=== PATIENT | female | born 1945 | race Caucasian/White ===

== ENCOUNTER → 2017-06-21 | Outpatient (CLI) | payer OTHER ==
[~2017-06-21] MED LIST: AMOXICILLIN PO; ASPECUNK PO; DYZUNK; EVS60 PO; EZET10TA63 PO; METO25TA56 PO; OXYSR20 PO; POTASSIUM; PRVSRUNK PO; SYN25 PO
== END | disposition home or self-care (01) ==
LOC: C.PAPS 14:50
PROVIDERS: ATTEND Obstetrics & Gynecology
DX: Z12.4 Encounter for screening for malignant neoplasm of cervix (principal); N95.0 Postmenopausal bleeding

== ENCOUNTER 2017-07-29 05:34 | Observation (INO) | payer OTHER, MEDICARE ==
[2017-07-15 14:45] VITALS: Ht 167.6 cm; Wt 124.3 kg
--- NOTE | 2017-07-15 15:04 | PAT Medication Instructions ---
Service Date Jul 15, 2017. Current Home Medication List Aspirin (Aspirin Ec), 81 MG PO QAM Cholecalciferol (Vitamin D), 1 TAB PO QAM Gemfibrozil (Lopid), 1 TAB PO BID Levothyroxine Sodium (Synthroid), 1 TAB PO QAM Lisinopril (Prinivil), 10 MG PO QPM Metoprolol Succinate (Metoprolol Succinate ER), 1 TAB PO QPM Medication Instructions For Your Scheduled Surgery - Check with surgeon and prescribing physician for instructions: Aspirin (Aspirin Ec), 81 MG PO QAM - Hold the following medications 24 hours prior to surgery: Lisinopril (Prinivil), 10 MG PO QPM - Hold the following medications the morning of surgery: Cholecalciferol (Vitamin D), 1 TAB PO QAM Gemfibrozil (Lopid), 1 TAB PO BID - Take the following medications the morning of surgery with a sip of water: Levothyroxine Sodium (Synthroid), 1 TAB PO QAM Metoprolol Succinate (Metoprolol Succinate ER), 1 TAB PO QPM - Take the following medications as scheduled the night before surgery: Gemfibrozil (Lopid), 1 TAB PO BID If you have any questions please call us at [phone] or [phone] or [phone]
--- NOTE | 2017-07-15 15:54 | DIAGNOSTIC IMAGING REPORT ---
TWO VIEW CHEST CLINICAL HISTORY: Preoperative examination. FINDINGS: PA and lateral chest radiographs are compared to study dated 01/30/2011. The heart is mildly enlarged and there is atherosclerotic calcification of the thoracic aorta. The pulmonary vasculature is noncongested. Chronic interstitial thickening is similar to previous. The lungs and pleural spaces are clear. There is no pneumothorax. The skeletal structures are osteopenic. The bony thorax appears intact. Degenerative change is seen throughout the thoracic spine. IMPRESSION: Mild cardiac enlargement with no active disease in the chest. Electronically signed by: Braden Antony M.D. 07/15/2017 3:53 PM Dictated Date/Time: 07/15/2017 3:52 PM
[~2017-07-29] VITALS: Ht 167.6 cm; Wt 124.3 kg
[2017-07-29] VITALS (10 sets, daily range): BP systolic 129–172; BP diastolic 67–86; PULSE 62–88; TEMP 36.4–36.7; O2SAT 92–97
[~2017-07-29 05:34] MED LIST changes: -AMOXICILLIN PO; -ASPECUNK PO; +ASPI81TA28 PO; +CHOL1TAB42 PO; -DYZUNK; -EVS60 PO; -EZET10TA63 PO; +GEMF600T3 PO; +LEVO75TA PO; +LISI10TA PO; -METO25TA56 PO; -OXYSR20 PO; -POTASSIUM; -PRVSRUNK PO; -SYN25 PO; +TPRSR50 PO
[2017-07-29] MEDS ORDERED: CEFAZOLIN 3000MG IV PUSH 15 ML IV SCH (06:00)
[2017-07-29] MEDS ORDERED: LACTATED RINGER'S 1000ML 1,000 ML IV SCH ×3 (06:00→12:45)
[2017-07-29] MEDS ORDERED: BUPIVACAINE 0.5 % 5 MG/1 ML MPF 30ML VIAL ONE (07:02)
--- NOTE | 2017-07-29 07:03 | History & Physical Bridge Note ---
H&P Re-Evaluation Bridge Note: I have examined the patient, reviewed the History & Physical and in the interval since the performance of the History & Physical I have noted the following changes of clinical significance: No changes noted
[2017-07-29] MEDS ORDERED: FENTANYL CITRATE INJ 50 MCG/1 ML 2 ML VIAL ONE (07:04)
[2017-07-29] MEDS ORDERED: MIDAZOLAM HCL 1 MG/ML 2ML VIAL ONE (07:04)
[2017-07-29] MEDS ORDERED: CISATRACURIUM BESYLATE IV SOLN 2 MG/ML 10 ML VIAL ONE (08:27)
[2017-07-29] MEDS ORDERED: DEXAMETHASONE SOD INJ 4 MG/ML VIAL ONE (08:27)
[2017-07-29] MEDS ORDERED: EpHEDrine SULFATE 50MG/5ML SYR ONE (08:27)
[2017-07-29] MEDS ORDERED: LIDOCAINE HCL 2% 2 ML VIAL (20MG/ML) ONE (08:27)
[2017-07-29] MEDS ORDERED: SUCCINYLCHOLINE 100MG/5ML SYR IV ONE (08:27)
[2017-07-29] MEDS ORDERED: PROPOFOL IV EMULSION 10 MG/ML 20 ML VIAL IV ONE (08:27)
[2017-07-29] MEDS ORDERED: LARYING-O-JET KIT (LTA) ONE ×2 (08:27)
[2017-07-29] MEDS ORDERED: NEOSTIGMINE METHYLSULFATE 5 MG/5 ML SYR ONE (08:27)
[2017-07-29] MEDS ORDERED: ONDANSETRON INJ 2 MG/ML 2 ML VIAL ONE (08:27)
[2017-07-29] MEDS ORDERED: KETOROLAC TROMETHAMINE 30 MG/ML VIAL ONE (08:27)
[2017-07-29] MEDS ORDERED: METHYLENE BLUE 0.5% 10 ML VIAL ONE (08:27)
[2017-07-29] MEDS ORDERED: GLYCOPYRROLATE INJ 0.2 MG/ML VIAL ONE (08:27)
[2017-07-29] MEDS ORDERED: LABETALOL HCL IV 5 MG/ML 20ML IV ONE (08:29)
[2017-07-29] MEDS ORDERED: PHENYLEPHRINE 100MCG/ML 5ML SYR ONE (08:58)
[2017-07-29] MEDS ORDERED: TISSEEL FIBRIN SEALANT 10ML TOP ONE (09:33)
[2017-07-29] MEDS ORDERED: TISSEEL FIBRIN SEALANT 4ML TOP ONE (09:46)
--- NOTE | 2017-07-29 10:07 | [facility] Post Operative Brief Note ---
Immediate Operative Summary Operative Date Jul 29, 2017. Pre-Operative Diagnosis Complex endometrial hyperplasia, endometrial polyp, and postmenopausal bleeding Post-Operative Diagnosis Complex endometrial hyperplasia, endometrial polyp, and postmenopausal bleeding Procedure(s) Performed Robotic assisted total laparoscopic hysterectomy with bilateral salpingo-oopherectomy and cystoscopy Surgeon Dr. Roberto Kelley MD Breakfast Attendant Surgeon(s) None Estimated Blood Loss 80ml Findings adhesions Specimens A. Uterus, cervix, bilateral fallopian tubes and ovaries Drains Ascencio Anesthesia General Complication(s) None Disposition Recovery Room / PACU
--- NOTE | 2017-07-29 10:08 | Discharge Instructions ---
Discharge Instructions Date of Service Jul 29, 2017. Admission Reason for Admission: Complex Endometrial Hyperplasia, Post-Menopausal B Discharge Discharge Diagnosis / Problem: PMB Discharge Goals Goal(s): Routine recovery after surgery Activity Recommendations Activity Limitations: per Instructions/Follow-up section . Instructions / Follow-Up Instructions / Follow-Up POST OPERATIVE: BOWEL FUNCTION/MEDICATIONS: 1. Constipation pain and discomfort are the most common complaints 5-7 days after surgery. Points 2-6 address the things that can help. 2. Chewing gum can help stimulate the gut and help improve digestion and motility. 3. Milk of Magnesia 1-2 times per day until return of bowel function. 4. Colace is a stool softener that helps. Taking this 2-3 times per day until bowel function returns to normal is highly recommended. 5. Dulcolax is a laxative that may be used if several days have passed without a bowel movement. Alternatively Miralax may be used daily instead. 6. Drink plenty of fluids as this will also reduce constipation. 7. Narcotic pain medications will be prescribed by your physician. They are safe to use and we encourage you to use them. If you are not allergic, ibuprofen will also be prescribed. Many patients will be able to transition off of the narcotic medications to ibuprofen by postoperative day 3. ACTIVITY RECOMMENDATIONS: 1. Get plenty of rest and listen to your body. If you are tired, take a nap. 2. You may shower, but do not take a tub bath until you see your doctor at the 2 week post operative visit. 3. Absolutely NO intercourse and nothing in the vagina until you are examined by your doctor at the 6 week visit. At that visit it will be determined when such activities can be resumed. This can range from 6-12 weeks after your surgery depending on healing time. 4. The main physical activity in the first week should be walking. By the second week you can slowly increase activity. There are no limits on walking up and down stairs. 5. Do not lift more than 5-10 lbs for 4 weeks. Remember the "one-handed rule", i.e. if you can lift something with only one hand it's likely okay. 6. Minimize gravity prospecting observer helper like vacuuming and exercising for 4 weeks. "Overdoing it" can lead to incisions not healing, pain and vaginal bleeding , so again, listen to your body. 7. Driving can be resumed when you feel able. Do not drive within 24 hours of taking a narcotic medication. EXPECTATIONS: 1. Vaginal spotting, bleeding and discharge are common after surgery. There may even be an odor to the discharge which is often related to sutures used in the vagina. If you experience heavy vaginal bleeding, call the office number day or night [phone]. 2. Bladder discomfort is common after surgery from the catheter. This usually resolves in 1-2 weeks. 3. By the end of the 3rd or 4th week you should be feeling much better. It may take up to 6 weeks for your energy levels to return to normal. 4. Narcotic medications have side effects such as: dizziness, headache, nausea and/or vomiting. If you suspect your pain medication is causing problems, call our office and we may be able to prescribe an alternate medication. 5. The skin incisions are often covered with a liquid bandage. This will gradually peel off over time. CALL THE OFFICE IF YOU HAVE ANY OF THE FOLLOWIN. Temperature of 101 degrees or higher. 2. Severe abdominal or pelvic pain not relieved by pain medication. 3. Persistent nausea or vomiting. 4. Increased pain with urination or difficulty urinating. 5. Bright red bleeding that soaks more than 1 pad per hour. CONTACT PHONE NUMBERS: Main Office: [phone] Surgical Nurse: [phone] extension [phone] Avoid all tobacco products. If you need help to stop smoking, call [place] FREE QUITLINE at . This is a free call. Current Hospital Diet Patient's current hospital diet: Discharge Diet Recommended Diet: Regular Diet Procedures Procedures Performed: Robotic assisted total laparoscopic hysterectomy with bilateral salpingo-oopherectomy and cystoscopy Pending Studies Studies pending at discharge: no Medical Emergencies . Who to Call and When: Medical Emergencies: If at any time you feel your situation is an emergency, please call 911 immediately. . Non-Emergent Contact Non-Emergency issues call your: Counter Tacker . . "Provider Documentation" section prepared by Pacheco Kelley. . VTE Core Measure Inpt VTE Proph given/why not?: Carly Pérez, SCD's
[2017-07-29] MEDS ORDERED: MTR600X PO (10:09)
[2017-07-29] MEDS ORDERED: OXYC-57 PO (10:09)
[2017-07-29] MEDS ORDERED: MAGNESIUM HYDROXIDE SUSP 30 ML UDC PO PRN (10:15)
[2017-07-29] MEDS ORDERED: SIMETHICONE 80 MG CHEW PO PRN (10:15)
[2017-07-29] MEDS ORDERED: PROMETHAZINE HCL INJ 12.5 MG in SODIUM CHLORIDE 0.9% 50ML 50 ML IV PRN ×2 (10:15→10:30)
[2017-07-29] MEDS ORDERED: MEPERIDINE HCL 50 MG/ML CARP IV PRN ×2 (10:15)
[2017-07-29] MEDS ORDERED: ACETAMINOPHEN 325 MG TAB PO PRN (10:15)
[2017-07-29] MEDS ORDERED: BISACODYL 10 MG SUPP PR PRN (10:15)
[2017-07-29] MEDS ORDERED: OXYCODONE/ACETAMINOPHEN 5-325 TAB PO PRN (10:15)
[2017-07-29] MEDS ORDERED: ZOLPIDEM TARTRATE 5 MG TAB PO PRN (10:15)
[2017-07-29] MEDS ORDERED: IBUPROFEN 600 MG TAB PO PRN (10:15)
[2017-07-29] MEDS ORDERED: ONDANSETRON INJ 2 MG/ML 2 ML VIAL IV PRN ×2 (10:15→10:30)
[2017-07-29] MEDS ORDERED: PROMETHAZINE HCL INJ 25 MG in SODIUM CHLORIDE 0.9% 50ML 50 ML IV PRN (10:15)
[2017-07-29] MEDS ORDERED: LABETALOL HCL IV 5 MG/ML 20ML IV PRN (10:30)
[2017-07-29] MEDS ORDERED: EpHEDrine SULFATE INJ 50 MG/ML AMP IV PRN (10:30)
[2017-07-29] MEDS ORDERED: FLUMAZENIL 0.1 MG/1 ML 10 ML VIAL IV PRN (10:30)
[2017-07-29] MEDS ORDERED: ATROPINE SULFATE 0.1 MG/ML 5ML SYR IV PRN (10:30)
[2017-07-29] MEDS ORDERED: NALOXONE HCL 0.4 MG/1 ML VIAL/CARP IV PRN (10:30)
[2017-07-29] MEDS ORDERED: HYDROmorphone INJ 0.5 MG/0.5 ML SYR IV PRN (10:30)
[2017-07-29] MEDS ORDERED: IV FLUIDS COMPLETED PRN (11:00)
--- NOTE | 2017-07-29 11:15 | Anesthesiology Progress Note ---
Anesthesia Post Op Note Date & Time Jul 29, 2017 at 11:15 Vital Signs Pain Intensity: 3 Vital Signs Past 12 Hours Date Time Temp Pulse Resp B/P (MAP) Pulse Ox O2 Delivery O2 Flow Rate FiO2 07/29/17 11:05 36.3 67 12 147/80 92 Nasal Cannula 4 07/29/17 10:55 67 12 153/73 92 Nasal Cannula 4 07/29/17 10:45 81 14 173/73 92 Nasal Cannula 4 07/29/17 10:35 81 14 163/76 95 Oxymask 10 07/29/17 10:25 81 14 173/82 95 Oxymask 10 07/29/17 10:15 36.5 86 14 166/80 95 Oxymask 10 07/29/17 06:10 36.7 88 20 172/86 (114) 95 Room Air Notes Mental Status: alert / awake / arousable, participated in evaluation Pt Amnestic to Procedure: Yes Nausea / Vomiting: adequately controlled Pain: adequately controlled Airway Patency, RR, SpO2: stable & adequate BP & HR: stable & adequate Hydration State: stable & adequate Anesthetic Complications: no major complications apparent
[2017-07-29] MEDS ORDERED: MEPERIDINE HCL 50 MG/ML CARP ONE (12:18)
--- NOTE | 2017-07-29 12:38 | OPERATIVE REPORT ---
DATE OF OPERATION: 07/29/2017 PREOPERATIVE DIAGNOSES: Complex endometrial hyperplasia in an endometrial polyp and postmenopausal bleeding. POSTOPERATIVE DIAGNOSES: Same. PROCEDURE: Robotically assisted total laparoscopic hysterectomy with bilateral salpingo-oophorectomy and cystoscopy. SURGEON: Dr. Kelley. STATE ARCHIVIST: None. ESTIMATED BLOOD LOSS: 80 mL. FINDINGS: Mild adhesions. SPECIMENS: Uterus, cervix, bilateral fallopian tubes and ovaries. DRAINS: Ascencio. ANESTHETIC: General. COMPLICATIONS: None. DISPOSITION: Recovery. DESCRIPTION OF PROCEDURE: The patient was given a general anesthetic, prepped and draped in dorsal lithotomy position in [facility]. Care was taken on positioning and she had a known right knee replacement, so we took extra caution. IV Ancef given preoperatively. Time-out performed. V-Care was placed into her uterus in the usual fashion and sewn in place. Ascencio catheter placed in her bladder, gloves changed and a supraumbilical incision made with scalpel. Using open Remedios technique, we made a direct cutdown cutting down to subcutaneous fat to the fascia, splitting the rectus muscles and entering the peritoneal cavity without difficulty. Blunt-tipped Remedios trocar was then placed. Balloon inflated to stabilize the port and then CO2 gas to insufflate the abdomen. FINDINGS: Upper abdomen normal, no sign of visceral organ injury. There was an adhesion around the umbilicus, this was omental. I was able to place robotic ports, 2 on the right, 1 on the left and a left upper quadrant accessory port, all under direct visualization. Robot was then docked after deep Trendelenburg position was obtained. We did cut down the adhesion at the umbilicus as it was obstructing the view was not overly dense. We did this with minimal electrosurgery. Hemostasis was good after this and I was able to visualize the pelvis. The patient's body habitus did make this case somewhat difficult as both the pelvic sidewalls and the bladder flap fat content did make difficulty and visualizations somewhat worse. Using arm #1 was monopolar jens, arm #2 was bipolar [place], arm #3 as the ProGrasp. The procedure was begun by identifying the blood supply to the left. Ureter was well away coagulated this with a bipolar [place] and then cut with monopolar jens. Ovary was then skeletonized off its lateral wall attachments and then the round ligament was coagulated and cut with monopolar jens. I was able to sharply dissect away the bladder flap and identify the uterine vessels on the left side. These were coagulated and cut with monopolar jens staying close to the cervix as possible. At this stage, we then continued her process with the exact same way on the right side. Once the bladder flap was fully sharply dissected away and both uterine blood supplies were controlled, we made an anterior colpotomy with the monopolar jens. This was continued to complete the colpotomy. Uterus was then pulled into the vagina and removed along with fallopian tubes and ovaries. A sponge in a glove was then placed into the vagina to maintain pneumoperitoneum. There was somewhat oozy; however, I did identify some bleeders, these were coagulated with the bipolar [place] IV and methylene blue was then given by anesthesia. At this stage, I was able to then close the cuff by using a 2-0, 90-day V-Loc suture and cuff was closed from left to right, back right to left, taking at least 1 cm full thickness bites, tissue call the vagina was somewhat poor, but I was able to get a reasonable closure. Suture was then cut, there was no tail and needle removed through the accessory port. After generous irrigation and suction, we then performed cystoscopy by going below. The Ascencio catheter was removed, the cystoscope was replaced, normal saline was our solution. I visualized the bladder, there was no sign of stitches in the bladder and both left and right ureter openings had good strong jets of bluish dye ejecting through. Cystoscope removed and a new Ascencio catheter placed. Note, the sponge in the glove had been removed from the vagina and no vaginal bleeding was noted. We then went back to the robot. Using direct guidance, I used to seal 14 mL total was used. We suctioned irrigated prior to this and at this stage, hemostasis was excellent. IV using had decreased. Robot was undocked by removing instruments and undocking. Ports removed, gas allowed to escape. Incisions injected with 0.5% Marcaine. Fascia closed carefully in the umbilical and left upper quadrant incisions with 0 Vicryl, subcuticular closures of the incisions with 4-0 Monocryl and Dermabond applied. Sponge and instrument counts correct. Urine clear at the end of procedure. I attest to the content of the Intraoperative Record and any orders documented therein. Any exception s are noted below.
[2017-07-29] MEDS ORDERED: INFLUENZA ADMINISTRATION CHARGE ONE (13:45)
[2017-07-29] MEDS ORDERED: INFLUENZA VIRUS QUAD VACCINE 0.5 ML SYR IM. ONE (13:45)
[2017-07-29] MEDS: OXYCODONE/ACETAMINOPHEN 5-325 TAB PO PRN ×2 (14:43→15:53)
[2017-07-29] MEDS ORDERED: DOCUSATE SODIUM 100 MG CAP PO SCH (21:00)
--- NOTE | 2017-08-01 09:06 | DISCHARGE SUMMARY ---
SUBJECTIVE: Elida had a total laparoscopic hysterectomy, bilateral salpingo-oophorectomy on 07/29/2017. Operative note is in the record. Her procedure was uncomplicated. Her stay in the hospital was a matter a few hours and she was discharged home the same day as her surgery. Subjectively the patient was ambulating, passing urine without difficulty, tolerating an oral diet, oral pain medication controlled her pain and she had no extremity pain. PHYSICAL EXAMINATION: VITAL SIGNS: Stable. She was afebrile. IMPRESSION AND PLAN: Discharged home a few hours after surgery. She met criteria. Given discharge instructions and pain medications. The patient advised to follow up in the office.
== END 2017-07-29 15:45 | disposition home or self-care (01) ==
LOC: C.ACU 05:34 → ENRESERV 11:12 → C.MS4N 11:40
PROVIDERS: ADMIT Obstetrics & Gynecology; ATTEND Obstetrics & Gynecology
DX: N85.01 Benign endometrial hyperplasia (principal); N84.0 Polyp of corpus uteri; N95.0 Postmenopausal bleeding; N72 Inflammatory disease of cervix uteri; I10 Essential (primary) hypertension; G47.33 Obstructive sleep apnea (adult) (pediatric); E66.01 Morbid (severe) obesity due to excess calories; E78.5 Hyperlipidemia, unspecified; E03.9 Hypothyroidism, unspecified; Z87.891 Personal history of nicotine dependence; Z96.651 Presence of right artificial knee joint; Z90.89 Acquired absence of other organs; Z79.899 Other long term (current) drug therapy
CPT/HCPCS: 58571; S2900